=== PATIENT | male | born 2005 | race African-American/Black ===

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

== ENCOUNTER 2023-07-24 08:14 | Emergency (ER) | payer MEDICAID, OTHER ==
[~2023-07-24] VITALS: Ht 182.9 cm; Wt 93.0 kg
[2023-07-24 08:37] VITALS: O2SAT 100
[2023-07-24] MEDS ORDERED: KETOROLAC 60MG/2ML VIAL IM ONE (10:45)
[2023-07-24] MEDS ORDERED: DEXAMETHASONE 10 MG/ML VIAL PO ONE (10:45)
[2023-07-24] MEDS ORDERED: IBUP-2778 MT (11:46)
[2023-07-24 11:50] VITALS: BP 128/77
[2023-07-24 12:35] VITALS: PULSE 84; RESP 16; TEMP 98.2
== END 2023-07-24 12:36 | disposition home or self-care (01) ==
LOC: ER 08:46
DX: J03.90 Acute tonsillitis, unspecified (principal); J45.909 Unspecified asthma, uncomplicated
CPT/HCPCS: 87430; 87070; 96372; 99283; J1100; J1885; Z7610

== ENCOUNTER 2024-05-31 09:52 | Emergency (ER) | payer MEDICAID ==
[~2024-05-31] VITALS: Ht 182.9 cm; Wt 93.0 kg
[~2024-05-31 09:52] MED LIST changes: +IBUP-2778 MT
[2024-05-31 09:58] VITALS: O2SAT 100
[2024-05-31 11:35] VITALS: BP 132/66; PULSE 68; RESP 19; TEMP 37.00296; O2SAT 100
== END 2024-05-31 11:41 | disposition home or self-care (01) ==
LOC: ER 09:52
DX: M54.50 Low back pain, unspecified (principal); J45.909 Unspecified asthma, uncomplicated
CPT/HCPCS: 99281

== ENCOUNTER 2024-06-16 17:27 | Emergency (ER) | payer MEDICAID ==
[~2024-06-16] VITALS: Ht 182.9 cm; Wt 98.0 kg
[2024-06-16 17:46] VITALS: O2SAT 100
[2024-06-16] MEDS: KETOROLAC 15MG/ML VIAL IM ONE (19:13)
[2024-06-16] MEDS: LIDOCAINE 5% PATCH TOP SCH (19:29)
[2024-06-16] MEDS ORDERED: LIDO700A15 TP (19:41)
[2024-06-16 20:00] VITALS: BP 121/75; PULSE 85; RESP 16; TEMP 36.66960; O2SAT 100
== END 2024-06-16 20:15 | disposition home or self-care (01) ==
LOC: ER 17:27
DX: M54.50 Low back pain, unspecified (principal); J45.909 Unspecified asthma, uncomplicated
CPT/HCPCS: 99283; 72100; 96372; J1885

== ENCOUNTER 2024-11-25 19:08 | Emergency (ER) | payer OTHER, MEDICAID ==
[~2024-11-25] VITALS: Ht 182.9 cm; Wt 103.8 kg
[~2024-11-25 19:08] MED LIST changes: +LIDO700A15 TP
[2024-11-25 19:10] VITALS: O2SAT 97
[2024-11-25 19:30] VITALS: BP 132/71; PULSE 86; RESP 16; TEMP 36.7; O2SAT 98
== END 2024-11-25 23:31 ==
LOC: ER 19:08
DX: M54.50 Low back pain, unspecified (principal); J45.909 Unspecified asthma, uncomplicated; Z79.899 Other long term (current) drug therapy
CPT/HCPCS: 99281